=== PATIENT | male | born 1990 | race Caucasian/White ===

== ENCOUNTER 2019-07-28 06:57 | Emergency (ER) | payer MEDICAID ==
[~2019-07-28] VITALS: Ht 167.6 cm; Wt 98.9 kg
[2019-07-28 07:17] VITALS: Ht 167.6 cm; Wt 98.9 kg
[2019-07-28 11:15] VITALS: BP 102/68
== END 2019-07-28 11:15 | disposition home or self-care (01) ==
LOC: ED 06:57
DX: T78.2XXA Anaphylactic shock, unspecified, initial encounter (principal); T78.40XA Allergy, unspecified, initial encounter; X58.XXXA Exposure to other specified factors, initial encounter
CPT/HCPCS: J0171; J1200; J2930; J3490

== ENCOUNTER 2020-01-10 21:47 | Emergency (ER) | payer SELFPAY ==
[~2020-01-10] VITALS: Ht 167.6 cm; Wt 93.4 kg
[2020-01-10 21:56] VITALS: Ht 167.6 cm; Wt 93.4 kg
[2020-01-10 22:59] LABS: PLATELET COUNT 153 x10^3mcL (130-400); RED CELL DISTRIBUTION WIDTH 12.7 % (11.5-14.5)
[2020-01-10 23:09] LABS: CALCIUM 8.8 mg/dL (8.5-10.1); CARBON DIOXIDE 21.8 mmol/L (21-32); CHLORIDE SERUM 100 mmol/L (98-107); CREATININE SERUM 0.9 mg/dL (0.7-1.3); GFR1 > 60 mL/min; GLUCOSE SERUM 223 mg/dL (74-106); POTASSIUM SERUM 3.6 mmol/L (3.5-5.1); SODIUM SERUM 134 mmol/L (136-145)
[2020-01-10 23:14] LABS: ALBUMIN 3.4 g/dL (3.4-5.0); ALKALINE PHOSPHATASE 128 U/L (46-116); ALT/SGPT 62 U/L (16-63); AST/SGOT 32 U/L (15-37); BILIRUBIN TOTAL 0.95 mg/dL (0.20-1.00); TOTAL PROTEIN, SERUM 7.6 g/dL (6.4-8.2)
[2020-01-10 23:20] LABS: ATYPICAL LYMPH 2 %; BAND NEUTROPHIL 15 % (0-10); BASOPHIL 0 % (0-2); MONOCYTE 13 % (0-7); SEGMENTED NEUTROPHILS 61 % (37-75); rbc morphology (normal/abnorm) NORMAL (NORMAL)
[2020-01-11 00:07] VITALS: BP 113/60
== END 2020-01-10 23:50 | disposition home or self-care (01) ==
LOC: ED 21:47
PROVIDERS: Emergency Medicine
DX: L72.9 Follicular cyst of the skin and subcutaneous tissue, unspecified (principal); R50.9 Fever, unspecified
CPT/HCPCS: J0696; J2001; J2405; J3010

== ENCOUNTER 2020-01-12 18:40 | Emergency (ER) | payer SELFPAY ==
[~2020-01-12] VITALS: Ht 167.6 cm; Wt 93.4 kg
[2020-01-12 19:01] VITALS: BP 119/53; Ht 167.6 cm; Wt 93.4 kg
== END 2020-01-12 19:21 | disposition home or self-care (01) ==
LOC: ED 18:40
DX: L02.416 Cutaneous abscess of left lower limb (principal)